=== PATIENT | male | born 1980 | race Caucasian/White ===

== ENCOUNTER 2020-01-07 11:08 | Emergency (ER) | payer SELFPAY ==
[~2020-01-07] VITALS: Ht 152.4 cm; Wt 90.9 kg
[2020-01-07] MEDS ORDERED: HALOPERIDOL 5MG/ML VIAL (J1630 PER 1) IV ONE (11:30)
[2020-01-07] MEDS ORDERED: NS 1,000 ML IV ONE (11:30)
[2020-01-07] MEDS ORDERED: ONDA4TAB6 PO (12:58)
[2020-01-07 13:23] VITALS: BP 114/68
== END 2020-01-07 13:30 | disposition home or self-care (01) ==
LOC: M ED 11:08 → EDBD 11:08 → M ED 13:30
DX: R11.2 Nausea with vomiting, unspecified (principal); R19.7 Diarrhea, unspecified; Z88.0 Allergy status to penicillin; Z87.891 Personal history of nicotine dependence; F12.20 Cannabis dependence, uncomplicated
CPT/HCPCS: 80047; 96361; 96374; 99284; J1630